=== PATIENT | female | born 1985 | race Caucasian/White ===

== ENCOUNTER 2016-05-09 10:33 | Outpatient (CLI) | payer MEDICAID | END 2016-05-09 10:34 | disposition home or self-care (01) | DX: D64.9 Anemia, unspecified (principal); E03.9 Hypothyroidism, unspecified ==

== ENCOUNTER 2016-10-27 19:13 | Emergency (ER) | payer MEDICAID ==
[2016-10-27 19:32] VITALS: BP 112/74
[2016-10-27 19:39] LABS: BILIRUBIN,URINE NEGATIVE (NEGATIVE)
[2016-10-27 19:40] LABS: UA w/ MICROSCOPIC CHARGE YES
[2016-10-27 19:43] LABS: HCG UR QUAL NEGATIVE
--- NOTE | 2016-10-27 19:47 | ED Physician Documentation ---
PD HPI FEMALE - Stated complaint Stated Complaint: FEMALE - Chief complaint Chief Complaint: Abd Pain - History obtained from History obtained from: Patient - History of Present Illness Timing - onset: Other (2 days of suprapubic pain and pressure with urinary frequency and dysuria with some low back pain but no flank pain or nausea ( although she requests nausea pills to go with any antibiotic if she gets nauseous with any antibiotics.)) Review of Systems Constitutional: denies: Fever, Chills GI: denies: Nausea, Vomiting, Diarrhea : reports: Dysuria, Frequency. denies: Hesitancy, Now [facility] PAST MEDICAL HISTORY - Past Medical History Cardiovascular: Murmur Respiratory: Other Neuro: None Endocrine/Autoimmune: Other GI: Ulcers [employer]: None : None HEENT: None Psych: Anxiety, Claustrophobia Musculoskeletal: None Derm: Eczema - Past Surgical History Past Surgical History: No General: Other - Present Medications Home Medications: Ambulatory Orders Medication Instructions Recorded Confirmed Iron 325 mg PO DAILY 07/04/12 10/27/16 Cholecalciferol (Vitamin D3) 1,000 unit PO DAILY 05/04/14 10/27/16 [Vitamin D] Multivitamin [Multivitamins] 1 each PO DAILY 05/04/14 10/27/16 Nitrofurantoin Monohyd/M-Cryst 1 tab PO BID 5 Days 10/27/16 [Macrobid 100 mg Capsule] Ondansetron HCl [Zofran] 4 mg PO Q6H PRN #10 tablet 10/27/16 Phenazopyridine HCl [Pyridium] 200 mg PO TID #6 tablet 10/27/16 Venlafaxine [Effexor] 75 mg PO BID 10/27/16 10/27/16 - Allergies Allergies/Adverse Reactions: Allergies Allergy/AdvReac Type Severity Reaction Status Date / Time acetaminophen [From Vicodin] AdvReac Severe Nausea Verified 10/27/16 19:32 hydrocodone bitartrate * AdvReac Severe Nausea Verified 10/27/16 19:32 [From Vicodin] Ruben Cloths AdvReac Severe Hives Uncoded 05/09/14 08:29 - Social History Does the pt smoke?: Yes Smoking Status: Former smoker Does the pt drink ETOH?: Yes Does the pt have substance abuse?: No - Immunizations Immunizations are current?: Yes - POLST Patient has POLST: No PD ED PE NORMAL - Vitals Vital signs reviewed: Yes - General General: Alert and oriented X 3, No acute distress - Abdomen Abdomen: Normal bowel sounds, Soft, Non tender - Back Back: No CVA TTP - Neuro Neuro: Alert and oriented X 3, Normal speech - Psych Psych: Normal mood, Normal affect Results - Vitals Vitals: Vital Signs - 24 hr 10/27/16 19:29 Temperature 36.6 C Heart Rate 81 Respiratory 17 Rate Blood Pressure 112/74 O2 Saturation 99 Oxygen O2 Source Room air - Labs Labs: Laboratory Tests 10/27/16 10/27/16 19:30 19:30 Urine Color YELLOW Urine Clarity CLOUDY Urine pH 6.0 Ur Specific [place] >=1.030 H >=1.030 H Urine Protein 100 H Urine Glucose (UA) NEGATIVE Urine Ketones NEGATIVE Urine Occult Blood LARGE H Urine Nitrite NEGATIVE Urine Bilirubin NEGATIVE Urine Urobilinogen 2 H Ur Leukocyte Esterase SMALL H Urine RBC TNTC H Urine WBC 4-5 Ur Squamous Epith Cells FEW Squamous Urine Bacteria Rare Ur Microscopic Review INDICATED Urine Culture Comments INDICATED Urine HCG, Qual NEGATIVE Departure - Departure Disposition: 01 Home, Self Care Clinical Impression: Cystitis Condition: Good Record reviewed to determine appropriate education?: Yes Instructions: ED UTI Cystitis Female Prescriptions: Nitrofurantoin Monohyd/M-Cryst [Macrobid 100 mg Capsule] 1 tab PO BID 5 Days Phenazopyridine HCl [Pyridium] 200 mg PO TID #6 tablet Ondansetron HCl [Zofran] 4 mg PO Q6H PRN #10 tablet PRN Reason: Nausea / Vomiting Comments: Call your doctor to arrange a follow-up appointment, make the next available appointment. In the interim, return anytime if worse or if new symptoms develop. We will culture your urine, the results should be done in 48-72 hours. If an antibiotic change is necessary we will call you. Return if worse in the meantime, especially if you develop increasing flank pain, fevers, or cannot keep down the medication.
[2016-10-27 19:50] LABS: UR CULTURE IF IND INDICATED
== END 2016-10-27 20:05 | disposition home or self-care (01) ==
LOC: ED 19:13
DX: N30.90 Cystitis, unspecified without hematuria (principal); Z87.891 Personal history of nicotine dependence
CPT/HCPCS: 81001; 81003; 81025; 87086; 99282; 99283

== ENCOUNTER 2017-02-04 14:22 | Outpatient (CLI) | payer MEDICAID ==
[2017-02-04 13:59] LABS: BASOPHILS % (AUTO) 0.6 %; EOSINOPHILS # (AUTO) 0.1 10^3/uL (0.0-0.7); EOSINOPHILS % (AUTO) 2.4 %; HCT - HEMATOCRIT 39.4 % (37.0-47.0); HGB - HEMOGLOBIN 13.5 g/dL (12.0-16.0); LYMPHOCYTES # (AUTO) 1.9 10^3/uL (1.5-3.5); LYMPHOCYTES % (AUTO) 34.4 %; MEAN CORPUSCULAR HEMOGLOBIN 28.7 pg (27.0-31.0); MEAN CORPUSCULAR HGB CONC 34.1 g/dL (32.0-36.0); MEAN CORPUSCULAR VOLUME 84.1 fL (81.0-99.0); MEAN PLATELET VOLUME 8.5 fL (7.9-10.8); MONOCYTES # (AUTO) 0.4 10^3/uL (0.0-1.0); MONOCYTES % (AUTO) 7.3 %; NEUTROPHILS % (AUTO) 55.3 %; RED BLOOD COUNT 4.69 10^6/uL (4.20-5.40); RED CELL DISTRIBUTION WIDTH 13.5 % (12.0-15.0); UNCORRECTED WHITE BLOOD COUNT 5.4 x10^3/uL; WHITE BLOOD COUNT 5.4 x10^3/uL (4.8-10.8)
[2017-02-04 14:41] LABS: THYROID STIMULATING HORMONE 1.15 uIU/mL (0.34-5.60)
[2017-02-04 15:41] LABS: ALBUMIN/GLOBULIN RATIO 1.6 (1.0-2.2); BILIRUBIN,TOTAL 0.7 mg/dL (0.2-1.0); CALCIUM 8.8 mg/dL (8.5-10.3); CREATININE 0.6 mg/dL (0.4-1.0); TOTAL PROTEIN 7.5 g/dL (6.7-8.2)
== END 2017-02-04 14:23 | disposition home or self-care (01) ==
LOC: LAB.N 14:22
PROVIDERS: ATTEND Family Medicine
DX: Z20.2 Contact with and (suspected) exposure to infections with a predominantly sexual mode of transmission (principal); E03.9 Hypothyroidism, unspecified; D64.9 Anemia, unspecified
CPT/HCPCS: 36415; 80053; 82728; 84439; 84443; 85025; 85651; 87389

== ENCOUNTER 2017-02-10 08:00 | Outpatient (CLI) | payer MEDICAID ==
[2017-02-10 20:03] LABS: BILIRUBIN,URINE NEGATIVE (NEGATIVE); PH,URINE 7.5 PH (5.0-7.5)
[2017-02-10 20:13] LABS: UR CULTURE IF IND NOT INDICATED; WBC,URINE 0-3 /HPF (0-5)
== END 2017-02-10 08:01 | disposition home or self-care (01) ==
LOC: LAB.R 08:00
PROVIDERS: ATTEND Family Medicine
DX: N39.0 Urinary tract infection, site not specified (principal)
CPT/HCPCS: 81001; 87086

== ENCOUNTER 2017-04-24 08:00 | Outpatient (CLI) | payer MEDICAID | END 2017-04-24 08:01 | disposition home or self-care (01) | LOC: LAB.N 08:00 | PROVIDERS: ATTEND Family Medicine | DX: Z20.2 Contact with and (suspected) exposure to infections with a predominantly sexual mode of transmission (principal) | CPT/HCPCS: 36415; 86695; 86696 ==

== ENCOUNTER 2017-05-22 15:26 | Outpatient (CLI) | payer MEDICAID ==
--- NOTE | 2017-05-22 17:47 | XRAY Report ---
EXAM: CERVICAL SPINE RADIOGRAPHY EXAM DATE: 05/22/2017 03:56 PM. CLINICAL HISTORY: Pain. COMPARISONS: None. TECHNIQUE: 3 views. FINDINGS: Alignment: Straightening of cervical lordosis above C6. No listhesis. No scoliosis. Mild thoracic sco liosis. Bones: The cervical vertebral bodies and posterior elements are well visualized from the skull base t hrough C7-T1. No fractures or bone lesions. Disks: Normal. Disk heights are maintained. Facets: No degenerative disease. Soft Tissues: Surgical clips in right neck. No prevertebral soft tissue swelling. The visualized lung apices are clear. IMPRESSION: Straightening. Otherwise unremarkable. [facility] Referring Provider Line: [phone] SITE ID: [id number]
== END 2017-05-22 15:27 | disposition home or self-care (01) ==
LOC: DI.N 15:26
PROVIDERS: ATTEND Family Medicine
DX: R51 Headache (principal)
CPT/HCPCS: 72040